=== PATIENT | female | born 1945 | race Native Hawaiian/Other Pacific Islander ===

== ENCOUNTER 2021-08-01 10:05 | Outpatient (CLI) | payer MEDICARE, OTHER ==
[~2021-08-01 10:05] MED LIST: ALPR-624 PO; CLON-529 PO; IRBE150T51 PO; METO50TA7 PO; SYN0.025T PO
== END 2021-08-01 23:59 | disposition home or self-care (01) ==
LOC: RAD 10:05
PROVIDERS: ATTEND Nurse Practitioner
DX: R42 Dizziness and giddiness (principal); R51.9 Headache, unspecified
CPT/HCPCS: 95816